=== PATIENT | male | born 1995 | race Hispanic/Latino ===

== ENCOUNTER 2020-05-30 05:29 | Day surgery (SDC) | payer OTHER ==
[2020-05-30] MEDS ORDERED: LACTATED RINGERS 1,000 ML ONE (06:55)
[2020-05-30] MEDS ORDERED: LIDOCAINE 1% 10 ML VIAL INJ ONE (07:00)
[2020-05-30] MEDS ORDERED: ePHEDrine SULF 50 MG/ML ONE (07:00)
[2020-05-30] MEDS ORDERED: PROPOFOL 200 MG/20 ML VIAL IV ONE (07:00)
[2020-05-30] MEDS ORDERED: MAGNESIUM SULFATE INJ 1 GM/2 ML VIAL ONE (07:00)
[2020-05-30] MEDS ORDERED: SODIUM CHLORIDE 0.9% 50 ML VIAL ONE (07:00)
[2020-05-30] MEDS ORDERED: ceFAZolin SODIUM 1 GM VIAL ONE (07:00)
[2020-05-30] MEDS ORDERED: DEXAMETHASONE INJ 10 MG/ML VIAL ONE (07:00)
[2020-05-30] MEDS ORDERED: KETOROLAC TROMETHAMINE INJ 30 MG/ML VIAL ONE (07:00)
[2020-05-30] MEDS ORDERED: BUPIVACAINE 0.25% W/EPI 50 ML VIAL INJ ONE (07:19)
[2020-05-30] MEDS ORDERED: DEXMEDETOMIDINE HCL 200 MCG/2 ML INJ IV ONE (07:46)
[2020-05-30] MEDS ORDERED: MIDAZOLAM INJ 2 MG/2 ML VIAL ONE (07:47)
[2020-05-30] MEDS ORDERED: KETAMINE HCL 100 MG/ML VIAL ONE (07:47)
[2020-05-30] MEDS ORDERED: fentaNYL CITRATE INJ 50 MCG/ML 2 ML AMP ONE (07:47)
[2020-05-30] MEDS: BUPIVACAINE 0.25% W/EPI 50 ML VIAL INJ ONE ×2 (08:09)
--- NOTE | 2020-05-30 09:31 | OP ---
DATE OF PROCEDURE: 05/30/20 PREOPERATIVE DIAGNOSIS: 1. Recurrent right inguinal hernia. POSTOPERATIVE DIAGNOSIS: 1. Recurrent right inguinal hernia, incarcerated. PROCEDURE: 1. Repair of recurrent incarcerated right inguinal hernia with mesh. 2. Ilioinguinal nerve block for postoperative pain control. SURGEON: Jerome Garrett MD. ANESTHESIA: General and local. FINDINGS: He had incarcerated omentum in the hernia. There was scarring noted from his previous repair and the suture also identified in the mid cord, relatively fatty and vascular cord, but the hernia sac was long, going into the scrotum. It was amputated at the proximal third. COMPLICATIONS: None. SPECIMEN: None. PLAN: Discharge. INDICATION: The patient had presented with pain. He had a large palpable hernia on the right side. He had a repair when he was young. He was consented for repair. We discussed the possible complications related to previous scarring, even the potential for loss of testicle, which is a very low percentage. PROCEDURE: He was brought to the Operative Suite in supine position. General anesthesia was induced. He was prepped and draped in sterile fashion. 0.5% Marcaine with epinephrine was used, first we fanned about the ASIS to perform an ilioinguinal nerve block. We then marked the incision and put in local and made the incision based on anatomic landmarks. His previous scar was medial to this. Incision was made. Subcutaneous tissues were taken down. The external oblique aponeurosis was identified. A jose was made. It was opened along its fibers. We then isolated the cord and identified the ilioinguinal nerve. That was kept superiorly out of harm's way. He had a large cord. Once we isolated it and began dissecting, noticing the previous scars, also noticed a stitch at about the mid cord now where they had done the previous repair. It was incarcerated at the time. We dissected the sac away from the cord at about the mid cord area because the sac went all the way down to the scrotum to avoid unnecessary excessive dissection on the cord structures. We got into the sac. There was incarcerated omentum. This was freed from the sac and able to be reduced without difficulty. The sac was then isolated. We closed it after it was amputated and then reduced it and created the preperitoneal plane with bother finger sweeps and 3 moist Ray-Yany sponges. While keeping the epigastric vessels anteriorly, the PHS mesh was then placed using retractors to ensure it was lying appropriately in the preperitoneal plane. It was then cut around the cord and tied, non-stricturing, secured at the tubercle and at the shelving edge. The mesh had been trimmed inferiorly just a little bit as there was too much redundant mesh on that lower side. It was now lying nice and flat on the inguinal floor. The nerve was superior and behind the mesh and out of harm's way. More local anesthesia was placed. The external oblique was then closed with a running 2-0 Vicryl. There was no bleeding throughout the case. The subcutaneous tissue and skin were closed with absorbable suture. Dressing was applied. He was awakened and taken to Recovery to be discharged. #[id number] [facility]
[2020-05-30] MEDS: ONDANSETRON INJ 4 MG/2 ML VIAL IV ONE (09:37)
[2020-05-30] MEDS ORDERED: ONDANSETRON INJ 4 MG/2 ML VIAL ONE (09:38)
[2020-05-30 10:56] VITALS: BP 139/62; TEMP 98.8; O2SAT 97
== END 2020-05-30 10:45 | disposition home or self-care (01) ==
LOC: AMB 05:29
PROVIDERS: ATTEND Surgery
DX: K40.91 Unilateral inguinal hernia, without obstruction or gangrene, recurrent (principal); G89.18 Other acute postprocedural pain; Z87.891 Personal history of nicotine dependence
CPT/HCPCS: 00830; 49520; 64425; A4216; J0690; J1100; J1885; J2250; J2405; J3475; J3490; J7120